=== PATIENT | male | born 1955 | race Caucasian/White ===

== ENCOUNTER 2023-04-26 07:55 | Outpatient (CLI) | payer MEDICARE, OTHER, SELFPAY ==
--- NOTE | ~2023-04-26 | XR_ITS ---
EXAMINATION: XR barium swallow modified DATE: 04/26/2023 08:45 INDICATION: Parkinson's disease with dyskinesia. TECHNIQUE: The patient was given barium-containing material of multiple consistencies to swallow by t noemi speech pathologist while I performed fluoroscopy. Fluoroscopy exposure time was 1.5 minutes. The n umber of fluoroscopy images saved to the PACS was 1. Dose-area product was 1.513 Gy-cm^2. FINDINGS: There is a reduced laryngeal elevation, reduced tongue base retraction, significant vallecular residu e, mild piriform sinus residue, and transient and inconsistent laryngeal penetration. No aspiration. IMPRESSION: 1. Laryngeal penetration. No aspiration. 2. Please refer to the speech therapy report for recommendations. Reviewed, dictated and finalized at location A. IAL DELIVERY CLERK
--- NOTE | 2023-04-26 10:59 | REHSTMBS ---
Assessment and note entered by Em Beatty CLIENT SERVICES ASSISTANT Modified Barium Swallow Evaluation Feeding Type Recommended Oral Food Consistency Regular, Level 7 Liquid Consistency Thin (0) Treatment Recommendations Effortful Swallow,Laryngeal Elevation Exerc, Angel Maneuver,Tongue Base Exercise,Vocal Fold Adduction Exer ST Clinical Summary MODIFIED BARIUM SWALLOW This patient was seen for a Modified Barium Swallow study after being seen for a Bedside Swallow Evaluation through [facility] secondary to patient's and 's concern about patient's swallowing skills and vocal loudness. Patient used the word, strangling today when describing swallowing thin liquids. The patient was viewed in the lateral position to the level of C5/C6. Patient was presented with 3 cc thin liquid contrast medium, and then uncontrolled thin liquid per cup and per straw, pudding mixed with semi-solid contrast medium, and then fruit cocktail and crackers both coated with the semi-solid mixture. Oral Stage: No concerns noted, adequate mastication and manipulation of liquids and solids. Pharyngeal Stage: Inconsistent, transient coating of the under-epiglottis and entrance to upper laryngeal vestibule noted on several consistencies with no discreet penetration observed except one time on pudding of the three occasions. There was no significant residue remaining in the airway at the completion of this evaluation. Significant vallecular residue was noted throughout all consistencies requiring multiple swallows, with the the transient, inconsistent penetration noted on the secondary swallow on at least one occasion. Reduced base of tongue retraction and reduced laryngeal elevation contributed to these instances of penetration. Cricopharyngeal stage: No issues noted. Results reveal a mild dysphagia at this time
== END 2023-04-26 07:56 | disposition home or self-care (01) ==
PROVIDERS: PCP Hospitalist
DX: G20.B2 Parkinson's disease with dyskinesia, with fluctuations (principal); T17.320A Food in larynx causing asphyxiation, initial encounter
CPT/HCPCS: 92611

== ENCOUNTER 2023-05-03 10:00 | Outpatient (RCR) | payer MEDICARE, OTHER, SELFPAY ==
--- NOTE | 2023-04-12 12:07 | OPREHPOC ---
Outpatient Therapy Plan of Care This is a Multidisciplinary Plan of Care that may contain components documented by all disciplines (PT, OT, and ST.) ST Problem 1 ST Problem #[address] Goal 1 Goal Patient and spouse will demonstrate understanding of voice and swallowing deficits and subsequent home exercise program in order to target those deficits. Target Visit [address] Problem #[address] Goal 1 Goal Patient will complete vocal function and breath support exercises (sustained phonation, pitch glides, easy breathing etc.) as trained at least twice daily, 5 days a week per self-report to improve voice quality. Target Visit 4 ST Goal 2 Goal Patient will use diaphragmatic breathing and complete sustained phonation tasks for /a/ phoneme for at least 25 seconds while maintaining perceptually good quality and volume in 8/10 attempts to improve muscular endurance required for sustained phonation. Target Visit [address] Problem #[address] Goal 1 Goal Patient will increase loudness to 80 decibels or higher during a reading or conversational task in 80% of attempts. Target Visit 4 ST Goal 2 Goal Patient will use compensatory intelligibilty strategies with 80% accuracy after models provided . Target Visit [address] Problem #[address] Goal 1 Goal Patient will complete a modified barium swallow study in order to set goals for improved safety and swallow mechanism. Target Visit 4
--- NOTE | 2023-04-12 12:07 | STOPEVAL1 ---
Assessment and note entered by Jackelyn Casey LUDLOW MACHINE OPERATOR Evaluation Information Assessment Status Evaluation Diagnosis Dysphonia;Dysphagia Onset 2years; 6 months Subjective Information Patient attended ST evaluation with ; both contributed information throughout the evaluation. Reported Pain Level Pain Score 0: Self Report Assessment ST Clinical Summary Michael Fox is a 67 year old male who was diagnosed with Parkinson's in 2007. In the last two years, he and his report a decline in his voice. He has always been a soft spoken person, but his voice has become even softer and will give out on him. He reports that his voice is better in the morning and declines in the afternoon with use; however, he does not use his voice like he used to. In the last 6 months, he reports he has started to get choked on food and drink. Due to this, he has altered consistencies ( water with fruit pulp to slightly thicken) and avoids eating out. The Voice Handicap Index was administered in order for patient and to accurately describe patient's voice and the effects his voice has on his life. Patient scored a 66 out of 120, placing him in the severe range often seen in patients with vocal fold paralysis or vocal fold scarring. Patient's intelligibility at word level was 100%, but dropped to 75% at conversation level. While reading a passage, it was noted that loudness decreased throughout the passage, as well as intelligibility. Additionally, patient demonstrated a deficit in breath support to power his voice as evidenced by clavicular breathing and inability to consistently time breathing with ends of sentences. Despite a decrease in breath support, patient's phonation did not alter. Patient's sustained /a/ phonation lasted 17.5 seconds, placing him under the norms for his age. It was noted that his loudness decreased and his voice presented a slight creaky quality throughout the sustained phonation task. Recommend skilled ST services 1-2x/week for 4 weeks to target deficits in breath support in order to increase loudness and vocal fold strength for improved communication.
--- NOTE | 2023-05-03 12:24 | STOPDC ---
Assessment and note entered by Em Beatty FORGING PRESS LEVER TENDER Evaluation Information Assessment Status Discharge Reported Pain Level Pain Score 0: Self Report Assessment ST Clinical Summary TREATMENT AND DISCHARGE SUMMARY Patient was seen today for last scheduled treatment session with discharge at his request. Patient attended an evaluation session and six treatment sessions focusing on both vocal loudness and intelligibility, and swallowing strengthening. Patient completed exercises well during therapy sessions and he indicated that he completed exercises at home although he would not commit to saying that he completed them twice daily, five days a week as instructed at the initial visit and every subsequent visit. He reports occasional strangling on thin liquids. Patient reported that he feels comfortable with where he is at this time. He stated that he knows all the exercises, knows that he needs to speak more loudly and also get his 's attention before speaking and to turn down loud noises or compensate by speaking more loudly. As a result of home program being in place, patient expressed that he would like to discontinue direct therapy at this time and discharge to independence. Patient is being discharged at this time with goals partially to fully achieved and home program in place. Thank you for this referral. Plan of Care ST Services Indicated No
== END 2023-05-03 13:49 | disposition home or self-care (01) ==
LOC: ANHST 10:00
PROVIDERS: PCP Hospitalist
DX: G20.A1 Parkinson's disease without dyskinesia, without mention of fluctuations (principal); R49.0 Dysphonia; R13.10 Dysphagia, unspecified
CPT/HCPCS: 92507; 92524; 92526; 92610; 92611